=== PATIENT | female | born 1985 | race Caucasian/White ===

== ENCOUNTER 2022-05-10 10:10 | Emergency (ER) | payer MEDICAID, SELFPAY ==
[2022-05-10 10:11] VITALS: BP 131/75; PULSE 90; RESP 18; TEMP 36.7; O2SAT 99; BMI 45.4
[2022-05-10 10:44] LABS: MANUAL DIFF FLAG NO
[2022-05-10 10:48] LABS: Basophils Absolute Auto 0.1 X10*3/uL (0.0-0.2); Basophils Percent Auto 0.8 % (0-2); Eosinophils Absolute Auto 0.3 X10*3/uL (0.0-0.4); Eosinophils Percent Auto 2.8 % (0-4); Hematocrit 39.7 % (37.0-47.0); Hemoglobin 13.4 g/dl (12.0-16.0); Imm Gran Abs Auto 0.07 X10*3/uL (0.00-0.03); Imm Gran Pct Auto 0.7 % (0.0-0.4); Lymphocytes Absolute Auto 3.3 X10*3/uL (1.2-4.9); Lymphocytes Percent Auto 31.7 % (20-40); Mean Corpuscular HGB Conc 33.8 g/dl (31.0-35.0); Mean Corpuscular Hemoglobin 29.9 pg (27.0-33.0); Mean Corpuscular Volume 88.6 fL (80.0-98.0); Mean Platelet Volume 9.1 fL (9.4-12.3); Monocytes Absolute Auto 0.8 X10*3/uL (0.1-1.2); Monocytes Percent Auto 7.3 % (2-11); Neutrophils Percent Auto 56.7 % (45-73); Platelet Count 446 X10*3/uL (160-400); Red Blood Count 4.48 X10*6/uL (4.20-5.50); Red Cell Distribution Width 13.2 % (11.0-16.0); White Blood Count 10.5 X10*3/uL (4.8-10.8)
[2022-05-10 11:04] LABS: Alanine Aminotransferase 27 U/L (0-31); Albumin Level 4.1 g/dL (3.5-5.0); Alkaline Phosphatase 59 U/L (39-117); Anion Gap 11 (12-20); Aspartate Amino Transferase 20 U/L (5-31); Blood Urea Nitrogen 13 mg/dL (9-16); Calcium 9.3 mg/dL (8.4-10.2); Carbon Dioxide 26 mmol/L (22-29); Chloride 103 mmol/L (96-108); Creatinine Clr Calc Pharmacy 114.5; Estimated Glomerular Filt Rate > 60; Glucose Random 97 mg/dL (60-115); Potassium 4.2 mmol/L (3.3-5.1); Sodium 136 mmol/L (135-145); Total Protein 7.1 g/dL (6.5-8.0)
[2022-05-10 11:28] LABS: Bilirubin Total 0.3 mg/dL (0.0-1.0)
--- NOTE | 2022-05-10 16:42 | ED_ITS ---
HPI - GI Bleed General Chief complaint: GI Bleed Stated complaint: Blood in stool Time Seen by Provider: 05/10/22 16:28 Source: patient and old records reviewed History of Present Illness HPI Narrative: Patient states she has had diarrhea for the past week. It has been watery but dark. No nausea vomiting but positive loss of appetite. She has been drinking plenty of liquids however. No abdominal pain or cramping. Over the past 2 days she has developed bright red blood per rectum. It is separate from the stool. She states it has been copious covering bowl. No lightheadedness or shortness of breath or chest pain. She has a history of bleeding hemorrhoids when she was 12 years ago but no issues since. She denies any rectal pain or swelling or masses. Not currently menstruating. No urinary symptoms She does not take NSAIDs. She occasionally takes Tylenol for headaches. She is on a benzodiazepine for anxiety but no other medications. She does not take antacids. 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 Related Data Previous Rx's Medication Instructions Recorded ulipristal 30 mg tablet 30 mg PO ONCE #1 tab 05/02/20 omeprazole magnesium 20 mg 20 mg PO DAILY #30 tabs 05/10/22 tablet,delayed release (Prilosec OTC) ondansetron 4 mg disintegrating 4 mg PO Q8H PRN nausea and 05/10/22 tablet vomiting #14 tabs witch faith 50 % topical pads 1 pad topical BID #48 ea 05/10/22 (Hemorrhoidal (witch faith)) Allergies Allergy/AdvReac Type Severity Reaction Status Date / Time No Known Allergies Allergy Unverified 02/06/20 17:58 Review of Systems Constitutional: Comments: No fevers chills or weakness Cardiovascular: Comments: No chest pain or palpitations Respiratory: Comments: No dyspnea Gastrointestinal: Comments: See HPI. No pain. Positive GI bleeding Musculoskeletal: Comments: No injuries or extremity pain Integumentary/Breasts: Comments: No rashes Neurologic: Comments: No focal weakness Hematologic/Lymphatic: Comments: GI bleeding Physical Exam Vital Signs: Vital Signs: Last Vital Signs Temp 98.1 F 05/10/22 10:11 Pulse 90 05/10/22 10:11 Resp 18 05/10/22 10:11 BP 131/75 05/10/22 10:11 Pulse Ox 99 05/10/22 10:11 O2 Del Method 05/10/22 10:11 BMI result Body Mass Index 45.4 Const: Other: Vital signs stable. Awake alert no acute distress Resp: Other: Clear and equal bilaterally without wheezes rales or rhonchi Cardio: Other: Regular rate rhythm without murmurs rubs or gallops GI: Other: Soft nontender. Normoactive bowel sounds. Rectal exam reveals 2 very small external hemorrhoids, not thrombosed or inflamed or bleeding. Approximately 4 and 06:00 o'clock. 2-3 mm each. Rectal exam shows small amounts of bright red blood. There is an internal hemorrhoids approximately 03:00 o'clock which is slightly over 0.5 cm. It is n ot thrombosed. Unclear if it is bleeding is it is internal. No melena. No stool in vault. Skin: Other: Warm pink and dry without rash Neuro: Other: Ambulatory. Nonfocal neuro exam Medical Decision Making Medical Decision Making MDM Narrative: Patient with 1 week of diarrheal illness. Two days of bright red blood per rectum. Multiple potential etiologies including colitis, infectious diarrhea, bleeding hemorrhoids, polyps, other masses, AVM, etc.. It does not appear consistent with an upper GI bleed even with a history of dark diarrhea. There is no melena the monitor. She is hemodynamically stable. Hemoglobin is normal and unchanged from prior. No evidence of hemodynamically significant hemorrhaging. Will treat for hemorrhoids as well as gastritis and nausea. GI follow-up as she likely needs colonoscopy to look for internal causes of lower GI bleed. Lab Data Result Diagrams: 05/10/22 10:36 05/10/22 10:36 Labs: Lab Results 05/10/22 05/10/22 Range/Units 10:36 10:36 WBC 10.5 (4.8-10.8) X10*3/uL RBC 4.48 (4.20-5.50) X10*6/uL Hgb 13.4 (12.0-16.0) g/dl Hct 39.7 (37.0-47.0) % MCV 88.6 (80.0-98.0) fL MCH 29.9 (27.0-33.0) pg MCHC 33.8 (31.0-35.0) g/dl RDW 13.2 (11.0-16.0) % Plt Count 446 H (160-400) X10*3/uL MPV 9.1 L (9.4-12.3) fL Immature Gran % (Auto) 0.7 H (0.0-0.4) % Neut % (Auto) 56.7 (45-73) % Lymph % (Auto) 31.7 (20-40) % Gray % (Auto) 7.3 (2-11) % Eos % (Auto) 2.8 (0-4) % Baso % (Auto) 0.8 (0-2) % Lymph # (Auto) 3.3 (1.2-4.9) X10*3/uL Gray # (Auto) 0.8 (0.1-1.2) X10*3/uL Eos # (Auto) 0.3 (0.0-0.4) X10*3/uL Baso # (Auto) 0.1 (0.0-0.2) X10*3/uL Abs Immat Gran (auto) 0.07 H (0.00-0.03) X10*3/uL Absolute Neuts (auto) 6.0 (2.0-8.3) x10*3/uL Absolute Nucleated RBC 0.000 (0.0-0.012) X10*3/uL Nucleated RBC % (auto) 0.0 (0.0-0.2) /100WBC Sodium 136 (135-145) mmol/L Potassium 4.2 (3.3-5.1) mmol/L Chloride 103 (96-108) mmol/L Carbon Dioxide 26 (22-29) mmol/L Anion Gap 11 L (12-20) BUN 13 (9-16) mg/dL Creatinine 0.96 (0.5-1.4) mg/dL Estim Creat Clear Calc 114.5 Estimated GFR > 60 Random Glucose 97 (60-115) mg/dL Calcium 9.3 (8.4-10.2) mg/dL Total Bilirubin 0.3 (0.0-1.0) mg/dL AST 20 (5-31) U/L ALT 27 (0-31) U/L Alkaline Phosphatase 59 (39-117) U/L Total Protein 7.1 (6.5-8.0) g/dL Albumin 4.1 (3.5-5.0) g/dL Discharge Plan Discharge Clinical Impression: Hemorrhoids, Lower gastrointestinal hemorrhage Patient Disposition: Home, Self-Care Instructions: Hemorrhoids (ED), Rectal Bleeding (ED) Additional Instructions: New of internal hemorrhoids on exam, but it is unclear if this is the source of your bleeding. We will treat the hemorrhoids but you also need to follow-up wit h gastroenterology for definitive diagnosis of the cause of the bleeding. Be sure to return immediately if worse in any way, especially if bleeding is uncontrolled or you are feeling lightheaded or shortness breath. In the meantime will also treat for nausea with Zofran and stomach acid with Prilosec. See the referral for Dr. Bone to arrange gastrointestinal follow-up Prescriptions: New Hemorrhoidal (witch faith) 50 % pads, medicated 1 pad topical BID Qty: 48 0RF ondansetron 4 mg tablet,disintegrating 4 mg PO Q8H PRN (Reason: nausea and vomiting) Qty: 14 0RF omeprazole magnesium [Prilosec OTC] 20 mg tablet,delayed release (DR/EC) 20 mg PO DAILY Qty: 30 0RF No Action ulipristal 30 mg tablet 30 mg PO ONCE Qty: 1 3RF Referrals: Diony Bone [Physician] -
[2022-05-10] MEDS: Omeprazole 20 MG CAPSULE.DR PO (17:04)
[2022-05-10] MEDS: Ondansetron ODT 4 MG TAB.RAPDIS TRANSLINGU (17:04)
== END 2022-05-10 17:06 | disposition home or self-care (01) ==
PROVIDERS: Emergency Provider Emergency Medicine; PCP Family Medicine
DX: K64.8 Other hemorrhoids (principal); K64.4 Residual hemorrhoidal skin tags; K92.2 Gastrointestinal hemorrhage, unspecified
CPT/HCPCS: 36415; 80053; 85025; 99282; 99283

== ENCOUNTER 2024-04-10 12:32 | Outpatient (REF) | payer MEDICAID, SELFPAY ==
[2024-04-10 13:26] LABS: MANUAL DIFF FLAG NO
[2024-04-10 13:34] LABS: Basophils Absolute Auto 0.1 X10*3/uL (0.0-0.2); Basophils Percent Auto 0.9 % (0-2); Eosinophils Absolute Auto 0.3 X10*3/uL (0.0-0.4); Hematocrit 39.7 % (37.0-47.0); Hemoglobin 13.7 g/dl (12.0-16.0); Imm Gran Abs Auto 0.05 X10*3/uL (0.00-0.03); Imm Gran Pct Auto 0.5 % (0.0-0.4); Lymphocytes Absolute Auto 2.8 X10*3/uL (1.2-4.9); Lymphocytes Percent Auto 28.6 % (20-40); Mean Corpuscular HGB Conc 34.5 g/dl (31.0-35.0); Mean Corpuscular Hemoglobin 30.9 pg (27.0-33.0); Mean Corpuscular Volume 89.4 fL (80.0-98.0); Mean Platelet Volume 10.1 fL (9.4-12.3); Monocytes Absolute Auto 0.7 X10*3/uL (0.1-1.2); Monocytes Percent Auto 7.3 % (2-11); Neutrophils Absolute Auto 5.9 x10*3/uL (2.0-8.3); Neutrophils Percent Auto 59.7 % (45-73); Platelet Count 370 X10*3/uL (160-400); Red Blood Count 4.44 X10*6/uL (4.20-5.50); Red Cell Distribution Width 13.2 % (11.0-16.0); White Blood Count 9.9 X10*3/uL (4.8-10.8)
[2024-04-10 13:41] LABS: Estimated Average Glucose 117 mg/dL; Hemoglobin A1C 137.9418 umol/L; Hemoglobin A1c % 5.7 % (<6.0); Total Hemoglobin (HGBA1C) 3579.8959 umol/L
[2024-04-10 14:15] LABS: Anion Gap 11 (12-20); Blood Urea Nitrogen 17 mg/dL (9-16); Calcium 9.1 mg/dL (8.4-10.2); Carbon Dioxide 29 mmol/L (22-29); Chloride 102 mmol/L (96-108); Estimated Glomerular Filt Rate > 60; Glucose Random 113 mg/dL (60-115); Potassium 3.8 mmol/L (3.3-5.1); Sodium 138 mmol/L (135-145)
[2024-04-10 14:18] LABS: HBS Num1 9.55 mIU/mL (0-7.99); HBc Num1 0.11 S/CO (0.00-0.79); HBsAGNum1 0.35 S/CO (0.00-0.99); HIV AB/AG Nonreactive (Nonreactive); HIV Num 1 0.06 S/CO (0.00-0.99); Hepatitis B Core Antibody Nonreactive (Nonreactive); Hepatitis B Surface Antigen Negative (Negative); ~Hepatitis C Antibody Nonreactive (Nonreactive)
[2024-04-10 14:20] LABS: Hepatitis A Antibody IgG REACTIVE (Nonreactive); ~Hepatitis A Antibody IgG 1.42 S/CO (0.00-0.99)
[2024-04-10 14:24] LABS: Alanine Aminotransferase 26 U/L (0-31); Albumin Level 4.2 g/dL (3.5-5.0); Alkaline Phosphatase 64 U/L (39-117); Anion Gap 11 (12-20); Aspartate Amino Transferase 18 U/L (5-31); Bilirubin Direct < 0.2 mg/dL (0.0-0.5); Bilirubin Total 0.2 mg/dL (0.0-1.0); Blood Urea Nitrogen 17 mg/dL (9-16); Calcium 9.4 mg/dL (8.4-10.2); Carbon Dioxide 28 mmol/L (22-29); Chloride 103 mmol/L (96-108); Cholesterol 128 mg/dL (<200); Estimated Glomerular Filt Rate > 60; Glucose Random 113 mg/dL (60-115); HDL Cholesterol 49 mg/dL (>40); Iron 55 mcg/dL (30-160); LDL Cholesterol Calculated 47 mg/dL (<100); Percent Iron Saturation 19 % (15-50); Potassium 3.8 mmol/L (3.3-5.1); Sodium 138 mmol/L (135-145); TSH reflex Free T4 2.48 uIU/mL (0.32-4.0); Thyroid Stimulating Hormone 2.48 uIU/mL (0.32-4.0); Total Iron Binding Capacity 285 mcg/dL (228-428); Total Protein 7.4 g/dL (6.5-8.0); Triglycerides 161 mg/dL (<150); Unsaturated Iron Binding 230 ug/dL
[2024-04-10 14:26] LABS: Ferritin 97 ng/mL (10-122); Free T4 (Free Thyroxine) 0.98 ng/dL (0.71-1.85); Vitamin D 25-OH Total 21.9 ng/mL (>30)
[2024-04-10 15:09] LABS: HBS Num2 9.91 mIU/mL (0-7.99); HBS Num3 10.11 mIU/mL (0-7.99); ~Hepatitis B Surface Antibody GRAYZONE (Nonreactive)
[2024-04-10 19:27] LABS: Folate 4.6 ng/mL (> or = 4.0); Vitamin B12 461 pg/mL (200-900)
[2024-04-12 08:48] LABS: RPR Rapid Plasma Reagin NON-REACTIVE (NON-REACTIVE)
== END 2024-04-10 12:33 | disposition home or self-care (01) ==
LOC: HO.HHCL 12:32
PROVIDERS: Family Medicine; Visit Provider Family Medicine
DX: R51.9 Headache, unspecified (principal); I10 Essential (primary) hypertension
CPT/HCPCS: 36415; 80048; 80061; 80076; 82306; 82607; 82728; 82746; 83036; 83540; 84439; 84443; 85025; 86592; 86704; 86706; 86708; 86803; 87340; 87389

== ENCOUNTER 2024-04-30 05:59 | Outpatient (REF) | payer MEDICAID, SELFPAY ==
--- NOTE | 2024-04-30 | EMG_ITS ---
FINDINGS: Bilateral median and ulnar motor and sensory studies were performed. Bilateral radial sensory studies were performed and paraspinal muscles were tested with a needle. IMPRESSION: Moderate left and mild right median neuropathy across carpal tunnel. MD TREASURE Mijares/RONI / [id number]
== END 2024-04-30 06:00 | disposition home or self-care (01) ==
LOC: HO.NEURO 05:59
PROVIDERS: PCP Family Medicine; Visit Provider Family Medicine
DX: G56.03 Carpal tunnel syndrome, bilateral upper limbs (principal)
CPT/HCPCS: 95886; 95911

== ENCOUNTER 2024-05-01 18:20 | Outpatient (REF) | payer MEDICAID, SELFPAY ==
[2024-05-02 02:53] LABS: CT PCR NOT DETECTED (Not Detect.); NG PCR NOT DETECTED (Not Detect.)
[2024-05-02 10:33] LABS: HPV 16,18/45 See PAP report
== END 2024-05-01 18:21 | disposition home or self-care (01) ==
LOC: HO.HHCLNP 18:20
PROVIDERS: Visit Provider Family Medicine
DX: Z01.419 Encounter for gynecological examination (general) (routine) without abnormal findings (principal); Z11.51 Encounter for screening for human papillomavirus (HPV)
CPT/HCPCS: 87491; 87591; 87624; 88175

== ENCOUNTER 2024-06-12 10:22 | Emergency (ER) | payer MEDICAID, SELFPAY ==
--- NOTE | ~2024-06-12 | CT_ITS ---
CLINICAL HISTORY: head pressure CT angiography head and neck with contrast and CT venogram. 3D Postprocessing. Comparison: CT/SR - CT HEAD/BRAIN WO IV CON - 06/12/24 12:09 EST MR - MRA HEAD WO CONTRAST [id number] - 07/06/18 17:29 EST Findings: Limited evaluation due to the delayed phase of contrast and venous contamination. Aortic arch and cervical great vessels are patent. No significant calcification of the carotid arteries. Left dominant vertebral artery. Small caliber right vertebral artery with limited evaluation. Intracranial arteries are patent. No aneurysm, dissection, or occlusion. No abnormal intracranial enhancement. The visualized thyroid gland is unremarkable. No cervical mass or fluid collection. Lung apices clear. No acute fracture. CT venogram: No contrast filling defects of the dural venous sinuses. IMPRESSION: Patent head and neck CTA. Limited evaluation due to the delayed phase of contrast. No evidence of dural venous sinus thrombosis. This document has been electronically signed by: Silas Baca MD on 06/12/2024 18:32:20
--- NOTE | ~2024-06-12 | CT_ITS ---
EXAMINATION: CT HEAD WITHOUT CONTRAST CLINICAL INFORMATION: Left-sided headache COMPARISON: None available. TECHNIQUE: Contiguous axial imaging was performed from the skull base to vertex without intravenous administration of contrast. This CT examination was performed using dose optimization techniques as appropriate, variously including the following: *Automated exposure control *Adjustment of mA and/or kV according to patient size (this includes techniques or standardized protocols for targeted exams where dose is matched to indication/reason for exam; i.e. extremities or head) *Use of iterative reconstruction technique DLP: 775 mGy/cm. FINDINGS: There is no acute intra-axial, extra-axial bleed, masses or midline shift. There is no acute infarction evolution. The mcfarland to white matter differentiation is maintained. The lateral ventricles are symmetrical in size and configuration without enlargement. No abnormality seen in the posterior fossa. Bone windows reveal no calvarial abnormality. No scalp soft tissue body. There is mild mucoperiosteal thickening bilateral sphenoid sinuses. Rest of paranasal sinuses and mastoid air cells are well-aerated. CT/CT head/brain wo IV con IMPRESSION: No acute intracranial process seen. Electronically signed by: Mj Holliday MD 06/12/2024 12:36 PM EST
[2024-06-12 10:32] VITALS: BP 173/83; PULSE 85; RESP 20; TEMP 36.8; O2SAT 99; BMI 45.6
--- NOTE | 2024-06-12 10:33 | ED.HA ---
HPI - Headache General Chief Complaint: Headache Stated Complaint: Ear Neck Pain Time Seen by Provider: 06/12/24 13:03 Source: patient Mode of arrival: ambulatory Limitations: no limitations History of Present Illness ED Provider: DANTE PRINCE PA-C HPI Narrative: 38 year old female with phx significant for GERD presents to the ED today for evaluation of left sided neck pain/ headache which began yesterday. She reports pain came on gradually yesterday. She does not recall what she was doing when the pain started. Pain is localized to the left side of her neck and radiates up into her head. She reports difficulty moving her neck side to side. She states her neck feels stiff. She is unsure if she slept in an odd position. She trialed motrin at home without relief. Denies fever/ chills, vision changes, N/V, confusion, difficulty ambulating. Denies trauma/injury/falls. No hx of migraines. Related Data Previous Rx's ?Medication ?Instructions ?Recorded ulipristal 30 mg tablet 30 mg PO ONCE #1 tab 05/02/20 omeprazole magnesium 20 mg 20 mg PO DAILY #30 tabs 05/10/22 tablet,delayed release (Prilosec OTC) ondansetron 4 mg disintegrating 4 mg PO Q8H PRN nausea and 05/10/22 tablet vomiting #14 tabs witch faith 50 % topical pads 1 pad topical BID #48 ea 05/10/22 (Hemorrhoidal (witch faith)) cyclobenzaprine 10 mg tablet 10 mg PO TID PRN muscle spasm #15 06/12/24 tabs naproxen 500 mg tablet 500 mg PO BID PRN pain 7 days #14 06/12/24 tabs Allergies Allergy/AdvReac Type Severity Reaction Status Date / Time No Known Allergies Allergy Verified 06/12/24 10:35 Review of Systems Review of Systems: Constitutional: No fever, chills, fatigue, night sweats, weight changes ENT/Mouth: No ear pain, hearing loss, nasal congestion, sinus pain, rhinorrhea, sore throat Eyes: No eye pain, swelling, redness, vision changes, discharge Cardio: No chest pain, palpitations, ELLER, orthopnea, peripheral edema Pulm: No SOB, cough, sputum, wheezing, dyspnea, hemoptysis GI: No nausea, vomiting, hematemesis, abdominal pain, diarrhea, constipation, hematochezia, melena : No irregular bleeding, dysuria, frequency, urgency, hesitancy, hematuria, flank pain, urinary flow changes, urinary incontinence or retention MSK: No back pain, neck pain, joint pain, myalgias Skin: No lesions, rashes Neuro: No weakness, numbness, paresthesias, LOC, dizziness, +headache Psych: No anxiety/panic, depression, SI/HI, AH/VH All other systems reviewed and are negative. [facility] Past Medical History Attestation statement: The following information was validated with the patient. Source: old records reviewed and nursing notes reviewed Social History Social History Smoked in Last 30 Days: No Use of substances other than those prescribed or required for medical reasons: No Advance Directives: No Advance Directives Information Provided: Yes Do you have a plan to hurt others: No Plan Physical Exam Vital Signs: Vital Signs: Last Vital Signs Temp 0 F L 06/12/24 21:10 Pulse 0 L 06/12/24 21:10 Resp 20 06/12/24 21:10 BP 00/00 L 06/12/24 21:10 Pulse Ox 99 06/12/24 18:52 O2 Del Method Room Air 06/12/24 18:52 BMI result Body Mass Index 45.6 hypertensvive, vitals otherwise wnl General: Well appearing, in no acute distress. Skin: Warm, dry, intact. No rashes or lesions. Head: Normocephalic, atraumatic. EENT: Hearing is intact b/l. Conjunctiva clear. Sclera is anicteric. PERRLA. EOM intact. Moist mucous membranes.? Neck: ttp along left cervical paraspinal mm with palpable spasm. no midline tenderness/step off. no meningeal signs/ nunchal rigidity. Cardiac: Chest wall symmetric. RRR Lungs: Normal respiratory effort without accessory muscle use. CTA bilaterally. Back: No midline spinous or paraspinal tenderness. No step off deformity. Ext: Upper and lower extremities atraumatic, without tenderness, deformity, swelling or erythema Neuro: AOx3. Normal speech. Strength 5/5 intact throughout. Sensation intact to light touch. NV intact distally. normal finger to nose, heel to mccloud. Ambulating with steady gait. Psych: Appropriate mood and affect. Responds appropriately to questions. Course Course Course Narrative: 38 yo female with PMH of GERD not on blood thinners here with c/o L sided headache felt like it was going to explode. She notes her brother had some sort of stroke. Denies URI symptoms, fevers. She has headaches but this is different for her. Headache started morning. She has not taken anything for it. At this time basic labs, CT head ordered. She is not toxic and neuro exam is intact this is a RAPID medical screening exam the rest of the history and physical exam is to be done by the main provider. Reevaluation(s) Reevaluation #1: Patient feels better. Head CTA negative. Patient requests to be discharged with muscle relaxant will follow-up with primary care provider. Not suspecting any meningitis, SD, carotid dissection or encephalitis. Patient explained worrisome signs and informed to return to the ED immediately. Time: 20:29 Reevaluation #2: 1630 -- cbc without leukocytosis or left shift. no anemia. h&h stable. chemistry without acute electrolyte abnormality requiring intervention. no tressa. random glucose 116. liver function around baseline. hcg negative. Negative covid/flu/rsv. ct head without bleed or mass. > trialed valium for neck pain. patient reports slight improvement in pain from 7/10 to 6/10. will trial migraine coctail. cta pending. stable at the end of my shift. sign out given to asha MOSS pending imaging, re-eval and disposition. Medications Administered Discontinued Medications Generic Name Dose Route Start Last Admin Trade Name Eriberto PRN Reason Stop Dose Admin Acetaminophen 975 mg 06/12/24 12:35 06/12/24 13:35 Acetaminophen 325 Mg Tablet PO 06/12/24 12:36 975 mg ONCE ONE Administration Diazepam 5 mg 06/12/24 14:01 06/12/24 15:01 Diazepam 5 Mg Tablet PO 06/12/24 14:02 5 mg ONCE ONE Administration Diphenhydramine HCl 25 mg 06/12/24 15:57 06/12/24 16:13 Diphenhydramine Hcl 50 Mg/Ml Vial IVPUSH 06/12/24 15:58 25 mg ONCE ONE Administration Sodium Chloride 1,000 mls @ 999 mls/hr 06/12/24 16:00 06/12/24 20:17 Ns IV 06/12/24 17:00 Infused .Q1H1M MARINA Infusion Iohexol 100 ml 06/12/24 17:16 06/12/24 17:16 Iohexol 350 Mg/Ml 100 Ml Infus..Btl IV 06/12/24 17:17 70 ml ONCE ONE Administration Ketorolac Tromethamine 15 mg 06/12/24 15:57 06/12/24 16:14 Ketorolac Tromethamine 15 Mg/Ml Vial IVPUSH 06/12/24 15:58 15 mg ONCE ONE Administration Metoclopramide HCl 10 mg 06/12/24 15:57 06/12/24 16:13 Metoclopramide Hcl 10 Mg/2 Ml Vial IVPUSH 06/12/24 15:58 10 mg ONCE ONE Administration Medical Decision Making Medical Decision Making [facility] Narrative: 38 year old female with phx significant for GERD presents to the ED today for evaluation of left sided neck pain/ headache which began yesterday. Hypertensive to 149/93. Vitals otherwise WNL. She is nontoxic appearing in no acute distress. NIH 0. Exam nonfocal. Cerebellum intact. No palpable temporal artery. No scalp tenderness. PERRLA. Ambulating w/ steady gait. Differential diagnosis includes anemia, electrolyte abnormality, dehydration, cervical muscle spasm vs strain, migraine vs tension type headache. No headache red flags. Neurologic exam without evidence of meningismus. No focal neurologic findings. Presentation not consistent with acute intracranial bleed including SAH (lack of risk factors, headache history). 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 Temporal arteritis unlikely, as is acute angle closure glaucoma given history and physical findings. Presentation not consistent with other acute, emergent causes of headache at this time. Plan: Labs, viral serology, CT head, migraine cocktail, re-evaluation. Differential Diagnosis Differential Diagnoses: The differential diagnosis associated with the presentation includes as above. Admission/Observation not indicated. Lab Data [facility] Lab Attestation statement: I reviewed the patient's lab results. As above 06/12/24 11:23 06/12/24 11:23 Labs: Lab Results 06/12/24 Range/Units 11:23 WBC 10.8 (4.8-10.8) X10*3/uL RBC 4.21 (4.20-5.50) X10*6/uL Hgb 12.7 (12.0-16.0) g/dl Hct 37.4 (37.0-47.0) % MCV 88.8 (80.0-98.0) fL MCH 30.2 (27.0-33.0) pg MCHC 34.0 (31.0-35.0) g/dl RDW 13.4 (11.0-16.0) % Plt Count 333 (160-400) X10*3/uL MPV 9.8 (9.4-12.3) fL Immature Gran % (Auto) 0.5 H (0.0-0.4) % Neut % (Auto) 64.9 (45-73) % Lymph % (Auto) 26.4 (20-40) % [place] % (Auto) 6.3 (2-11) % Eos % (Auto) 1.3 (0-4) % Baso % (Auto) 0.6 (0-2) % Lymph # (Auto) 2.9 (1.2-4.9) X10*3/uL [place] # (Auto) 0.7 (0.1-1.2) X10*3/uL Eos # (Auto) 0.1 (0.0-0.4) X10*3/uL Baso # (Auto) 0.1 (0.0-0.2) X10*3/uL Abs Immat Gran (auto) 0.05 H (0.00-0.03) X10*3/uL Absolute Neuts (auto) 7.0 (2.0-8.3) x10*3/uL Absolute Nucleated RBC 0.000 (0.0-0.012) X10*3/uL Nucleated RBC % (auto) 0.0 (0.0-0.2) /100WBC Sodium 139 (135-145) mmol/L Potassium 4.0 (3.3-5.1) mmol/L Chloride 110 H (96-108) mmol/L Carbon Dioxide 24 (22-29) mmol/L Anion Gap 9 L (12-20) BUN 13 (9-16) mg/dL Creatinine 0.73 (0.5-1.4) mg/dL Estim Creat Clear Calc 148.2 Estimated GFR > 60 Random Glucose 116 H (60-115) mg/dL Calcium 9.2 (8.4-10.2) mg/dL Magnesium 2.2 (1.6-2.6) mg/dL Total Bilirubin 0.2 (0.0-1.0) mg/dL Direct Bilirubin < 0.2 (0.0-0.5) mg/dL AST 21 (5-31) U/L ALT 37 H (0-31) U/L Alkaline Phosphatase 62 (39-117) U/L Total Protein 7.4 (6.5-8.0) g/dL Albumin 4.1 (3.5-5.0) g/dL Beta HCG, Quant < 2 mIU/mL Influenza Type A (PCR) NEGATIVE (Negative) Influenza Type B (PCR) NEGATIVE (Negative) RSV RNA Qual (PCR) NEGATIVE (Negative) SARS-CoV-2 RNA (RT-PCR) NEGATIVE (Negative) Independent Interpretation I performed an independent interpretation of an: CT Scan Interpretation: CT head/brain without bleed CTA without bleed/ ischemia Radiology Impression Discussion of test interpretation with radiology: I have reviewed the radiologist's reading. Radiologist Impression: EXAMINATION: CT HEAD WITHOUT CONTRAST CLINICAL INFORMATION: Left-sided headache COMPARISON: None available. TECHNIQUE: Contiguous axial imaging was performed from the skull base to vertex without intravenous administration of contrast. This CT examination was performed using dose optimization techniques as appropriate, variously including the following: *Automated exposure control *Adjustment of mA and/or kV according to patient size (this includes techniques or standardized protocols for targeted exams where dose is matched to indication/reason for exam; i.e. extremities or head) *Use of iterative reconstruction technique DLP: 775 mGy/cm. FINDINGS: There is no acute intra-axial, extra-axial bleed, masses or midline shift. There is no acute infarction evolution. The mcfarland to white matter differentiation is maintained. The lateral ventricles are symmetrical in size and configuration without enlargement. No abnormality seen in the posterior fossa. Bone windows reveal no calvarial abnormality. No scalp soft tissue body. There is mild mucoperiosteal thickening bilateral sphenoid sinuses. Rest of paranasal sinuses and mastoid air cells are well-aerated. CT/CT head/brain wo IV con IMPRESSION: No acute intracranial process seen. Electronically signed by: Mj Holliday MD 06/12/2024 12:36 PM EST RP CLINICAL HISTORY: head pressure CT angiography head and neck with contrast and CT venogram. 3D Postprocessing. Comparison: CT/SR - CT HEAD/BRAIN WO IV CON - 06/12/24 12:09 EST MR - MRA HEAD WO CONTRAST [id number] - 07/06/18 17:29 EST Findings: Limited evaluation due to the delayed phase of contrast and venous contamination. Aortic arch and cervical great vessels are patent. No significant calcification of the carotid arteries. Left dominant vertebral artery. Small caliber right vertebral artery with limited evaluation. Intracranial arteries are patent. No aneurysm, dissection, or occlusion. No abnormal intracranial enhancement. The visualized thyroid gland is unremarkable. No cervical mass or fluid collection. Lung apices clear. No acute fracture. CT venogram: No contrast filling defects of the dural venous sinuses. IMPRESSION: Patent head and neck CTA. Limited evaluation due to the delayed phase of contrast. No evidence of dural venous sinus thrombosis. This document has been electronically signed by: iSlas Baca MD on 06/12/2024 18:32:20 External Record Review External record reviewed: Inpatient record, Office record, Outpatient record, Prior outpatient labs, Prior outpatient radiology, Primary care record and Outside ED record Prescription Management I considered prescription management with: Pain Medication Social Determinants Patient?s care significantly limited by Social Determinants of Health including: Other Social Determinant of Health Critical Care Time Critical Care Time Critical Care Time: No Discharge Plan Discharge Clinical Impression: Headache, Neck muscle spasm Patient Disposition: Home, Self-Care Instructions: Acute Headache (ED), Muscle Spasm (ED) Additional Instructions: Your labs and CT scans came back normal and reassuring. Recommend follow-up with your primary care provider. Return to the ED immediately for any headache, blurry vision, loss of vision, slurred speech, facial droop, paralysis of extremities, chest pain, shortness of breath, dizziness, or any other concerning symptoms. Findings: Limited evaluation due to the delayed phase of contrast and venous contamination. Aortic arch and cervical great vessels are patent. No significant calcification of the carotid arteries. Left dominant vertebral artery. Small caliber right vertebral artery with limited evaluation. Intracranial arteries are patent. No aneurysm, dissection, or occlusion. No abnormal intracranial enhancement. The visualized thyroid gland is unremarkable. No cervical mass or fluid collection. Lung apices clear. No acute fracture. CT venogram: No contrast filling defects of the dural venous sinuses. IMPRESSION: Patent head and neck CTA. Limited evaluation due to the delayed phase of contrast. No evidence of dural venous sinus thrombosis. This document has been electronically signed by: Silas Baca MD on 06/12/2024 18:32:20 Prescriptions: New cyclobenzaprine 10 mg tablet 10 mg PO TID PRN (Reason: muscle spasm) Qty: 15 0RF Rx Instructions: Do not take at work or while driving. Side effects is drowsiness. naproxen 500 mg tablet 500 mg PO BID PRN (Reason: pain) 7 Days Qty: 14 0RF No Action ulipristal 30 mg tablet 30 mg PO ONCE Qty: 1 3RF Hemorrhoidal (witch faith) 50 % pads, medicated 1 pad topical BID Qty: 48 0RF ondansetron 4 mg tablet,disintegrating 4 mg PO Q8H PRN (Reason: nausea and vomiting) Qty: 14 0RF omeprazole magnesium [Prilosec OTC] 20 mg tablet,delayed release (DR/EC) 20 mg PO DAILY Qty: 30 0RF Referrals: Aditi Carl DO [Primary Care Provider] - (Headache/neck spasm/torcillosis) Stand Alone Forms: Work/School Release Interventions: ED Discharge Assessment Last Done: 06/12/24 21:10 Discharge Date/Time: 06/12/24 21:11 Print Language: [place]
[2024-06-12 11:27] LABS: MANUAL DIFF FLAG NO
[2024-06-12 11:30] LABS: Basophils Absolute Auto 0.1 X10*3/uL (0.0-0.2); Basophils Percent Auto 0.6 % (0-2); Eosinophils Absolute Auto 0.1 X10*3/uL (0.0-0.4); Eosinophils Percent Auto 1.3 % (0-4); Hematocrit 37.4 % (37.0-47.0); Hemoglobin 12.7 g/dl (12.0-16.0); Imm Gran Abs Auto 0.05 X10*3/uL (0.00-0.03); Imm Gran Pct Auto 0.5 % (0.0-0.4); Lymphocytes Absolute Auto 2.9 X10*3/uL (1.2-4.9); Lymphocytes Percent Auto 26.4 % (20-40); Mean Corpuscular Hemoglobin 30.2 pg (27.0-33.0); Mean Corpuscular Volume 88.8 fL (80.0-98.0); Mean Platelet Volume 9.8 fL (9.4-12.3); Monocytes Absolute Auto 0.7 X10*3/uL (0.1-1.2); Monocytes Percent Auto 6.3 % (2-11); Neutrophils Percent Auto 64.9 % (45-73); Platelet Count 333 X10*3/uL (160-400); Red Blood Count 4.21 X10*6/uL (4.20-5.50); Red Cell Distribution Width 13.4 % (11.0-16.0); White Blood Count 10.8 X10*3/uL (4.8-10.8)
[2024-06-12 11:49] LABS: Alanine Aminotransferase 37 U/L (0-31); Albumin Level 4.1 g/dL (3.5-5.0); Alkaline Phosphatase 62 U/L (39-117); Anion Gap 9 (12-20); Aspartate Amino Transferase 21 U/L (5-31); Bilirubin Direct < 0.2 mg/dL (0.0-0.5); Bilirubin Total 0.2 mg/dL (0.0-1.0); Blood Urea Nitrogen 13 mg/dL (9-16); Calcium 9.2 mg/dL (8.4-10.2); Carbon Dioxide 24 mmol/L (22-29); Chloride 110 mmol/L (96-108); Creatinine Clr Calc Pharmacy 148.2; Estimated Glomerular Filt Rate > 60; Glucose Random 116 mg/dL (60-115); HCG Quantitative < 2 mIU/mL; Magnesium 2.2 mg/dL (1.6-2.6); Sodium 139 mmol/L (135-145); Total Protein 7.4 g/dL (6.5-8.0)
[2024-06-12 12:30] LABS: Influenza A PCR NEGATIVE (Negative); Influenza B PCR NEGATIVE (Negative); Resp Syncy Virus RNA Qual PCR NEGATIVE (Negative); SARS COV2 PCR INHOUSE NEGATIVE (Negative)
[2024-06-12 13:32] VITALS: BP 149/93; PULSE 63; RESP 17; TEMP 37; O2SAT 97
[2024-06-12] MEDS: Acetaminophen 325 MG TABLET 975 MG PO (13:35)
[2024-06-12] MEDS: diazePAM 5 MG TABLET PO (15:01)
--- OUTSIDE RECORDS SUMMARY | 2024-06-12 15:24 | XMS_ITS | Encounter Summary ---
Author Organization [employer] Address [address] [facility] 7t [place] [address] Care Team Providers Care Grey Tender Name Role Phone Aditi Carl DO Primary Care Provider [phone] Encounter Details Date Type Department Care Team (Late st Contact Info) Description 06/05/2024 Telephone [facility] [address] [place] [address] Aditi Carl DO [address] [place], [place] [phone] Social History Tobacco Use Types Packs/Day Years Used Date Smoking Tobacco: Former Cigarettes Passive Smoke Exposure: Past Smokeless Tobacco: Never Alcohol Use Standard Drinks/Week Comments Not Currently 0 (1 standard drink = 0.6 oz pur e alcohol) Housing Stability Answer Date Recorded What is your housing situation today? I have jeannine arriaza 03/29/[address] you li ve. Do you have problems with any of the following? None of the above 03/29/2024 Food Insecurity Answer Date Recorded Within the past 12 months, y ou worried that your food would run out before you got money to buy more: Often true 03/29/2024 Within the past 12 months,th e food you bought just didn't last and you didn't have enough money to get more: Often true 12/2023 Transportation Answer Date Recorded In the past 12 months, has l ack of transportation kept you from medical appts, meetings, work or from getting things needed for daily living? No 03/29/2024 Utilities Answer Date Recorded In the past 12 months, has t he electric, gas, oil or water company threatened to shut off services in your home? No 03/29/2024 Internet Access Answer Date Recorded Internet Access Q1 Yes 03/29/2024 Internet Access Q2 Not on file 03/29/2024 Comments No Sex and Gender Information Value Date Recorded Sex Assigned at Female 03/21/2022 10:21 AM EDT Legal Sex Female 10:21 AM EDT Gender Identity Female 03/21/2022 10:21 AM EDT Sexual Orientation Straight 03/21/2022 10 :21 AM EDT documented as of this encounter Miscellaneous Notes * Telephone Encounter - Mary Anne Arreola - 06/05/2024 9:59 AM EST [place] [facility] Head/Brain order to be update to MRA Brain/Head wo contrast . Please review and advise . documented in this encounter Plan of Treatment Not on file documented as of this encounter Visit Diagnoses Not on filedocumented in this encounter Care Teams Grey Tender Relationship Specialty Start Date End Date Aditi Carl DO [address] [place] [phone] PCP - General Family Medicine 04/08/24 documented as of this encounter
--- OUTSIDE RECORDS SUMMARY | 2024-06-12 15:24 | XMS_ITS | Encounter Summary ---
Author Organization [employer] Address [address] [facility] 7t [place] [address] Care Team Providers Care Business Sales Consultant Name Role Phone BeatrizAditi hernandez Primary Care Provider [phone] Encounter Details Date Type Department Care Team (Late st Contact Info) Description 06/12/2024 Orders Only GENERIC EXTERNAL DATA DEPARTMENT Provider, Generic External Data Social History Tobacco Use Types Packs/Day Years [...] AM EDT documented as of this encounter Plan of Treatment Not on file documented as of this encounter Procedures Procedure Name Priority Date/Time Associated Diagnosis Comments SARS COV2/INFLUENZA A/B AND RSV RNA QL NAAT Routine 06/12/2024 11:23 AM EST CBC WITH AUTO DIFFERENTIAL Routine 06/12/2024 11:23 AM EST HCG, TOTAL, QN Routine 06/12/2024 11:23 AM EST MAGNESIUM Routine 06/12/2024 11:23 AM EST HEPATIC FUNCTION PANEL Routine 06/12/2024 11:23 AM EST BASIC METABOLIC PANEL Routine 06/12/2024 11:[address] HEAD WO CONTRAST Routine 06/12/2024 1 0:36 AM EST documented in this encounter Results * SARS-CoV-2 RNA, Influenza A/B, and RSV RNA, Ql NAAT (06/12/2024 11:23 AM EST) Influenza A PCR NEGATIVE Negative [facility] Influenza B PCR NEGATIVE Negative [facility] Resp Syncy Virus RNA Qual PCR NEGATIVE Negative [facility] SARS COV2 PCR NEGATIVE Negative [facility] Comment:All test results mus t be correlated with clinical findings.Negative results do not preclude SARS-CoV2, influenza Avirus, influenza B virus and/or RSV infectionand should not be used as the sole basis for treatment orother patient management decisions. Negative results must becombined with clinical observations, patient history, andepidemiological information.This test has not been evaluated for monitoring treatment ofinfection.This test has been authorized by the FDA under an EmergencyUse Authorization (EUA) for use by authorized laboratories.Testing performed on the [employer]pert utilizingreal-time RT-PCR.All SARS CoV2 and positive influenza A/B results arereported to [facility]. 06/12/2024 11:2 3 AM EST 06/12/2024 11:25 AM EST Generic External Data Provider LAB MICROBIOLOGY - GENERAL ORDERABLES Final Result Performing Organization Address City/[facility]/ZIP Co de Phone Number [facility] [address] [place] [phone] [phone] * hCG, Total, Quantitative (06/12/2024 11:23 AM EST) HCG Quantitative <2 mIU/mL [facility] Comment:Weeks post LMP Appro ximate hCG(Last Menstrual Period) Range (mIU/ml)3 - 4 weeks 9 - 1304 - 5 weeks 75 - 2,6005 - 6 weeks 850 - 20,8006 - 7 weeks 4000 - 100,2007 - 12 weeks 11,500 - 289,05116 - 16 weeks 18,300 - 137,95414 - 29 weeks (2nd trimester) 1,400 - 53,53805 - 41 weeks (3rd trimester) 940 - 60,000The Siddiqui B- hCG assay is used for the early detection ofpregnancy; it cannot be used to diagnose any conditionunrelated to . If a B-hCG level is not supportedby the clinical evidence, results should be confirmed by analternative method (qualitative urine hCG, for example). 06/12/2024 11:2 3 AM EST 06/12/2024 11:25 AM EST Generic External Data Provider LAB BLOOD ORDERAB LES Final Result Performing Organization Address City/[facility]/ZIP Co de Phone Number [facility] [address] [place] [address] [phone] * Magnesium (06/12/2024 11:23 AM EST) Magnesium 2.2 1.6 - 2.6 mg/dL [facility] 06/12/2024 11:2 3 AM EST 06/12/2024 11:25 AM EST us Generic External Data Provider LAB BLOOD ORDERAB LES Final Result Performing Organization Address City/[facility]/ZIP Co de Phone Number [facility] [address] [place] [phone] * (ABNORMAL) Basic Metabolic Panel (06/12/2024 11:23 AM EST) Sodium 139 135 - 145 mmol/L [facility] Potassium 4.0 3.3 - 5.1 mmol/L [facility] Chloride 110(H) 96 - 108 mmol/L [facility] Carbon Dioxide 24 22 - 29 mmol/L [facility] Anion Gap 9(L) 12 - 20 [facility] Urea Nitrogen (BUN) 13 9 - 16 mg/dL [facility] Creatinine, Serum 0.73 0.5 - 1.4 mg/dL [facility] Creatinine Clr Calc Pharmacy 148.2 [facility] Comment:Provided height and weight: 170.18 cm,132.2 kg.eGFR (calculated from the MDRD study equation) and eCrCl(calculated from the Cockcroft-Gault equation) are based ondifferent parameters and may not yield comparable results.If eCrCl result is absurd, please check patient'sheight/weight. Estimated Glomerular Filt Rate >60 [facility] Comment:Chronic Kidney Disea se: Estimated GFR < 60 mL/min/1.15j1Eulgib Kidney Disease: Estimated GFR < 15 mL/min/1.73m2 Glucose 116(H) 60 - 115 mg/dL [facility] Calcium 9.2 8.4 - 10.2 mg/dL [facility] 06/12/2024 11:2 3 AM EST 06/12/2024 11:25 AM EST us Generic External Data Provider LAB BLOOD ORDERAB LES Final Result Performing Organization Address City/[facility]/ZIP Co de Phone Number [facility] [address] [place] [phone] * (ABNORMAL) Hepatic Function Panel (06/12/2024 11:23 AM EST) Pathologist [facility] Bilirubin, Total 0.2 0.0 - 1.0 mg/dL [facility] Bilirubin, Direct <0.2 0.0 - 0.5 mg/dL [facility] Aspartate Amino Transferase 21 5 - 31 U/L [facility] Alanine Aminotransferase 37(H) 0 - 31 U/L [facility] Total Protein 7.4 6.5 - 8.0 g/dL [facility] Albumin Level 4.1 3.5 - 5.0 g/dL [facility] Alkaline Phosphatase 62 39 - 117 U/L [facility] 06/12/2024 11:2 3 AM EST 06/12/2024 11:25 AM EST us Generic External Data Provider LAB BLOOD ORDERAB LES Final Result Performing Organization Address City/State/[facility] Co de Phone Number [facility] [address] [place] [phone] * (ABNORMAL) CBC auto differential (06/12/2024 11:23 AM EST) [facility] White Blood Count 10.8 4.8 - 10.8 X10*3/uL [facility] Red Blood Count 4.21 4.20 - 5.50 X10*6/uL [facility] Hemoglobin 12.7 12.0 - 16.0 g/dl [facility] Hematocrit 37.4 37.0 - 47.0 % [facility] Mean Corpuscular Volume 88.8 80.0 - 98.0 fL [facility] Mean Corpuscular Hemoglobin 30.2 27.0 - 33.0 pg [facility] Mean Corpuscular HGB Conc 34.0 31.0 - 35.0 g/dl [facility] Red Cell Distribution Width 13.4 11.0 - 16.0 % [facility] Platelet Count 333 160 - 400 X10*3/uL [facility] Mean Platelet Volume 9.8 9.4 - 12.3 fL [facility] Neutrophils Percent Auto 64.9 45 - 73 % [facility] Imm Gran Pct Auto 0.5(H) 0.0 - 0.4 % [facility] Lymphocytes Percent Auto 26.4 20 - 40 % [facility] Monocytes Percent Auto 6.3 2 - 11 % [facility] Eosinophils Percent Auto 1.3 0 - 4 % [facility] Basophils Percent Auto 0.6 0 - 2 % [facility] NRBC Pct Auto 0.0 0.0 - 0.2 /100WBC [facility] Neutrophils Absolute Auto 7.0 2.0 - 8.3 x10*3/uL [facility] Imm Gran Abs Auto 0.05(H) 0.00 - 0.03 X10*3/uL [facility] Lymphocytes Absolute Auto 2.9 1.2 - 4.9 X10*3/uL [facility] Monocytes Absolute Auto 0.7 0.1 - 1.2 X10*3/uL [facility] Eosinophils Absolute Auto 0.1 0.0 - 0.4 X10*3/uL [facility] Basophils Absolute Auto 0.1 0.0 - 0.2 X10*3/uL [facility] NRBC Abs Auto 0.000 0.0 - 0.012 X10*3/uL [facility] 06/12/2024 11:2 3 AM EST 06/12/2024 11:25 AM EST us Generic External Data Provider LAB BLOOD ORDERAB LES Final Result [facility] [address] [place] [phone] * CT Head w/o Contrast (06/12/2024 10:36 AM EST) Anatomical Region Laterality Modality Head, Neck Computed Tomogra phy 06/12/2024 10:3 6 AM EST Narrative 06/12/2024 12:39 PM EST ? [facility] ?[address] ?[place] [address] ? CT Scan Report ? Signed ? Patient: Eduard Sheets,Doll M ?MR# ?? : [id number] ? : 1985 ?Acct:[id number] ? Age/Sex: 38 / F ?ADM Date: 06/12/24 ? Loc: HO.ED ? Attending Dr: ? Ordering Physician: Karine Felton DO ?? Date of Service: 06/12/24 ?? Procedure(s): CT head/brain wo IV con ?? Accession Number(s): [id number] ? cc: Karine Felton DO; Aditi Carl DO ? Report Number: ?? [id number]: Total DLP = ??775.00 mGy-cm ?? EXAMINATION: ?? CT HEAD WITHOUT CONTRAST ? CLINICAL INFORMATION: ?? Left-sided headache ? COMPARISON: ?? None available. ? TECHNIQUE: ?? Contiguous axial imaging was performed from the skull base to vertex ?? without intravenous administration of contrast. ? This CT examination was performed using dose optimization techniques as ?? appropriate, variously including the following: ?? *Automated exposure control ?? *Adjustment of mA and/or kV according to patient size (this includes ?? techniques or standardized protocols for targeted exams where dose is ?? matched to indication/reason for exam; i.e. extremities or head) ?? *Use of iterative reconstruction technique ?? DLP: 775 mGy/cm. ? FINDINGS: ?? There is no acute intra-axial, extra-axial bleed, masses or midline ?? shift. There is no acute infarction evolution. The mcfarland to white matter ?? differentiation is maintained. The lateral ventricles are symmetrical ?? in size and configuration without enlargement. No abnormality seen in ?? the posterior fossa. Bone windows reveal no calvarial abnormality. No ?? scalp soft tissue body. There is mild mucoperiosteal thickening ?? bilateral sphenoid sinuses. Rest of paranasal sinuses and mastoid air ?? cells are well-aerated. ? CT/CT head/brain wo IV con ?? IMPRESSION: ?? No acute intracranial process seen. ? Electronically signed by: ??Mj Holliday MD ??06/12/2024 12:36 PM EST RP ? Dictated By: ?Miya,Mj S MD ? Signed By: ?<Electronically signed by Mj S MD Miya in OV> ?06/12/24 1236 ? DD/ 1036 ? TD/TT: 06/12/24 1224 ? Printing Pressman: MSM ? Procedure Note Donotuseinterpreter, Image - 06/12/[address] [address] [address] Scan Report Signed Patient: Fatou Marquis MMR# : [id number] : 1985Acct:[id number] Age/Sex: 38 / FADM Date: 06/12/24 Loc: HO.ED Attending Dr: Ordering Physician: Karine Felton DO Date of Service: 06/12/24 Procedure(s): CT head/brain wo IV con Accession Number(s): [id number] cc: Karine Felton DO; Aditi Carl DO Report Number: [id number]: Total DLP = 775.00 mGy-cm EXAMINATION: CT HEAD WITHOUT CONTRAST CLINICAL INFORMATION: Left-sided headache COMPARISON: None available. TECHNIQUE: Contiguous axial imaging was performed from the skull base to vertex without intravenous administration of contrast. This CT examination was performed using dose optimization techniques as appropriate, variously including the following: *Automated exposure control *Adjustment of mA and/or kV according to patient size (this includes techniques or standardized protocols for targeted exams where dose is matched to indication/reason for exam; i.e. extremities or head) *Use of iterative reconstruction technique DLP: 775 mGy/cm. FINDINGS: There is no acute intra-axial, extra-axial bleed, masses or midline shift. There is no acute infarction evolution. The mcfarland to white matter differentiation is maintained. The lateral ventricles are symmetrical in size and configuration without enlargement. No abnormality seen in the posterior fossa. Bone windows reveal no calvarial abnormality. No scalp soft tissue body. There is mild mucoperiosteal thickening bilateral sphenoid sinuses. Rest of paranasal sinuses and mastoid air cells are well-aerated. CT/CT head/brain wo IV con IMPRESSION: No acute intracranial process seen. Electronically signed by: Mj Holliday MD 06/12/2024 12:36 PM EST RP Dictated By: Mj Holliday MD Signed By: <Electronically signed by Mj Holliday MD in OV> 06/12/24 1236 DD/ 1036 TD/TT: 06/12/24 1224 Printing Pressman: [facility] External Provider IMG CT PROCEDURES Final Result documented in this encounter Visit Diagnoses Not on filedocumented in this encounter Care Teams Business Sales Consultant Relationship Specialty Start Date End Date Aditi Carl DO [address] [place] [address] PCP - General Family Medicine 04/08/24 documented as of this encounter
--- OUTSIDE RECORDS SUMMARY | 2024-06-12 15:24 | XMS_ITS | Encounter Summary ---
Author Organization [employer] Address [address] [facility] 7t [place] [address] Care Team Providers Care Natural Resource Technician Name Role Phone Aditi Carl DO Primary Care Provider [phone] Encounter Details Date Type Department Care Team (Late st Contact Info) Description 05/23/2024 Telephone [facility] [address] [place] [address] Aditi Carl DO [address] [place], [place] [phone] Social History Tobacco Use Types Packs/Day Years [...] Telephone Encounter - Mary Anne Arreola - 05/23/2024 8:51 AM EST Incoming fax from [facility] requesting MRI Head/Brain order to be update to MRA Brain/Head wo contrast . Please review and advise . documented in this encounter Plan of Treatment Not on file documented as of this encounter Visit Diagnoses Not on filedocumented in this encounter Care Teams Natural Resource Technician Relationship Specialty Start Date End Date Aditi Carl DO [address] [place] [phone] PCP - General Family Medicine 04/08/24 documented as of this encounter
--- OUTSIDE RECORDS SUMMARY | 2024-06-12 15:24 | XMS_ITS | Encounter Summary ---
Author Organization [employer] Address [address] [facility] [place] [address] Care Team Providers Care Claim Benefit Specialist Name Role Phone GeminiAditi bustamante Primary Care Provider [phone] Encounter Details Date Type Department Care Team (Late st Contact Info) Description 05/30/2024 Telephone [facility] [address] [place] [address] Josué Bogue, [place] Social History Tobacco Use Types Packs/Day Years [...] encounter Miscellaneous Notes * Telephone Encounter - Courtney Moses [place] - 05/30/2024 2:39 PM EST DME RX for wrist braces generated and placed on providers desk for signature. documented in this encounter Plan of Treatment Not on file documented as of this encounter Visit Diagnoses Not on filedocumented in this encounter Care Teams Claim Benefit Specialist Relationship Specialty Start Date End Date Aditi Carl DO [address] [place] [address] PCP - General Family Medicine 04/08/24 documented as of this encounter
--- OUTSIDE RECORDS SUMMARY | 2024-06-12 15:24 | XMS_ITS | Clinical Summary ---
Author Organization [employer] Address [address] [facility] [address] [place] [address] Care Team Providers Care Director Operations Broadcast Name Role Phone GeminiAditi bustamante Primary Care Provider [phone] Allergies No known active allergies Medications acetaminophen (Tylenol 8 Hour) 650 MG ER tablet take 1 Tablet by oral route every 8 hours as needed as needed for PAIN AND/OR FEVER 60 tablet 3 Active escitalopram (Lexapro) 20 MG tabletIndication s:Mood disorder (CMS/HCC),Posttr aumatic stress disorder Take 20 mg by mouth in the morning. 4 Active clonazePAM (KlonoPIN) 2 MG tabletIndication s:Mood disorder (CMS/HCC),Posttr aumatic stress disorder Take 2 mg by mouth if needed in the morning and at bedtime. Active QUEtiapine (SEROquel) 100 MG tabletIndication s:Mood disorder (CMS/HCC),Posttr aumatic stress disorder Take 100 mg by mouth at bedtime. 4 Active busPIRone (Buspar) 30 MG tabletIndication s:Mood disorder (CMS/HCC),Posttr aumatic stress disorder Take 30 mg by mouth 2 times daily. 4 Active Blood Pressure kit Check blood pressure three times a week 1 kit 4 Active hydroCHLOROthiaz ross (HYDRODiuril) 25 MG tablet Take 1 tablet (25 mg) by mouth Once per day. 90 tablet 1 4 04/08/20 25 Active baclofen (Lioresal) 10 MG tablet Take 1 tablet (10 mg) by mouth if needed in the morning, at noon, and at bedtime for muscle spasms. 60 tablet 3 4 04/08/20 25 Active lidocaine (Lidoderm) 5 % patch Apply 1 patch topically if needed each day for mild pain. Remove & discard patch within 12 hours or as directed by MD. 30 patch 3 4 Active Diclofenac Sodium 1 % gel APPLY 2 GRAMS TOPICALLY TO THE AFFECTED AREA FOUR TIMES DAILY NEEDED FOR PAIN 150 g 3 4 Active cholecalciferol (Vitamin D-3) 50 MCG (2000 UT) capsule Take 1 capsule (50 mcg) by mouth Once per day. 90 capsule 3 4 04/12/20 25 Active omeprazole (PriLOSEC) [address] Nascimento ns:Gastroesophag eal reflux disease, unspecified whether esophagitis present TAKE 1 CAPSULE(20 MG) BY MOUTH EVERY 12 HOURS 180 capsule Active famotidine (Pepcid) 40 MG tablet Take 1 tablet (40 mg) by mouth at bedtime. 30 tablet 3 4 05/02/20 25 Active Active Problems Problem Noted Date Diagnosed Date History of gestational diabetes 04/08/2024 Post traumatic stress disorder 04/08/2024 Chronic bipolar disorder 04/08/2024 Anxiety 04/08/2024 Bilateral carpal tunnel syndrome 03/19/2024 Assessment & Plan (05/02/2024 11:51 AM EST): Hx of carpel tunnel surgery on right hand without relief. -ordered nerve conduction study 03/19/24. -will refer to specialist after results. 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 Nurses to reach out to pt to offer OT/wrist splint vs return to surgeon. Will place referral if pt desires. Essential hypertension 03/19/2024 Assessment & Plan (03/19/2024 2:44 PM EDT): Initial BP in clinic was elevated, repeat WNL. -Discussed giving BP monitor and instructed to monitor at home. Nonintractable headache 03/19/2024 Assessment & Plan (03/19/2024 3:09 PM EDT): New headache x3 days waxing and waning. Pertinent negatives: No fevers. No worsening with laying down or standing up. No vomiting. No changes in mental status/cognition. No LOC. No difficulty with language or swallowing. No weakness. Pertinent Positives: She denies a history of recent head injury. Prior neurological history: negative for no neurological problems. -ordered labs 03/19/24 Chronic gastroesophageal reflux disease 06/25/19 19 Assessment & Plan (03/19/2024 3:10 PM EDT): Pt Last seen in 2020. Hx of GERD -refilled Omeprazole 20 mg Dyslipidemia 03/16/2015 Elevated fasting glucose 03/16/2015 Fibromyalgia 03/16/2015 BMI 40.0-44.9, adult 03/16/2015 Resolved Problems Problem Noted Date Diagnosed Date Resolved Date Mood disorder 03/16/2015 04/08/2024 Assessment & Plan (03/19/2024 3:10 PM EDT): Pt Last seen in 2020. Follows with therapist and psychiatrist. -refilled escitalopram (Lexapro) 20 MG tablet, clonazePAM (KlonoPIN) 2 MG tablet, QUEtiapine (SEROquel) 100 MG tablet, and busPIRone (Buspar) 30 MG tablet. Posttraumatic stress disorder 03/16/2015 04/08/2024 Assessment & Plan (03/19/2024 3:10 PM EDT): Pt Last seen in 2020. Follows with therapist and psychiatrist. -refilled escitalopram (Lexapro) 20 MG tablet, clonazePAM (KlonoPIN) 2 MG tablet, QUEtiapine (SEROquel) 100 MG tablet, and busPIRone (Buspar) 30 MG tablet. Encounters Date Type Department Care Team Description 06/12/2024 Orders Only GENERIC EXTERNAL DATA DEPARTMENT Provider, Generic External Data 06/05/2024 Telephone [facility] [address] [place] [address] Aditi Carl DO 06/03/2024 Telephone [facility] [address] [place] [address] Courntey Moses [place] Durable Medical Equipment 05/30/2024 Telephone [facility] [address] [place] [address] Josué CourtneyBERRY paul 05/23/2024 Telephone [facility] [address] [place] [phone] Aditi Carl DO 05/06/[address] [address] Ivis Fregoso MD 05/02/[address] [address] Ivis Fregoso MD Results 05/01/2024 9:00 AM EST Procedure Visit [address] [address] Aditi Carl DO Encounter for gynecological examination without abnormal finding 05/01/2024 Travel 04/28/2024 Refill [facility] [address] [place] [phone] Ivis Fregoso MD Gastroesophageal reflux disease, unspecified whether esophagitis present 04/12/[address] [address] Sandy Amin RN 04/08/2024 10:45 AM EST Office Visit [address] [address] Aditi Carl DO Essential hypertension (Primary Dx); Post traumatic stress disorder; Fibromyalgia; Chronic gastroesophageal reflux disease; Pain in both hands; Breast abscess; Family history of brain aneurysm 04/08/2024 Travel 03/29/2024 Patient Outreach [address] [address] Aditi Carl DO Care Coordination (CHW outreach for SDOH food needs-referral completed /) 03/29/2024 Patient Outreach [address] [address] Aditi Carl DO Pre-visit Planning (SDOH Screening positive and Tobacco screening negative) 03/19/2024 2:40 PM EDT Office Visit [facility] [address] [place] [phone] Ivis Fregoso MD Nonintractable headache, unspecified chronicity pattern, unspecified headache type (Primary Dx); Elevated blood pressure reading in office without diagnosis of hypertension; Bilateral carpal tunnel syndrome; Gastroesophageal reflux disease, unspecified whether esophagitis present; Mood disorder (CMS/HCC); Posttraumatic stress disorder; Fibromyositis 03/19/2024 Telephone [facility] [address] [place], [place] [phone] Ivis Fregoso MD new pt appt (Pt was seen [address] Carl. Will need new pt appt per Dr. Fregoso. ) from Last 3 Months Immunizations Name Administration Dates Next Due Hep A, Adult 11/04/2010 Hep B, adult 12/04/2013,11/04/2010 Influenza injectable quadriv alent IIV4 with preservative 02/16/2018,04/05/2017,03/16/2015 Influenza injectable quadriv alent preservative free 03/26/2020,05/09/2016 Influenza, IIV3, injectable 03/06/2014 Influenza, Split (incl. papo fied surface antigen) 02/22/2013,01/19/2012 MMR 01/06/2014,12/04/2013 Pneumococcal Polysaccharide PPSV23 10/18/2016 TD (adult), 2 Lf tetanus tox oid, preservative free, adsorbed 03/26/2020 Td (adult), 5 Lf tetanus tox oid, preservative free, adsorbed 11/19/2012 Tdap 10/26/2015,02/04/2010 Varicella 01/06/2014,12/04/2013 Social History Tobacco Use Types Packs/Day Years Used Date Smoking Tobacco: Former Cigarettes Passive Smoke Exposure: Past Smokeless Tobacco: Never Tobacco Cessation:Counseling Given: Not Answered Alcohol Use Standard Drinks/Week Comments Not Currently [...] Orientation Straight 03/21/2022 10 :21 AM EDT Last Filed Vital Signs Vital Sign Reading Time Taken Comments Blood Pressure 120/78 05/01/2024 8:58 AM EST Pulse 90 05/01/2024 8:58 AM EST Temperature 37 ??C (98.6 ??F) 05/01/2024 8:58 AM EST Respiratory Rate 17 05/01/2024 8:58 AM EST Oxygen Saturation 99% 03/19/2024 2:06 PM EDT RA Inhaled Oxygen Concentration - - Weight 127 kg (279 lb) 05/01/2024 8:58 AM EST Height 171.5 cm (5' 7.5 ) 05/01/2024 8:58 AM EST Body Mass Index 43.05 05/01/2024 8:58 AM EST Plan of Treatment Health Maintenance Due Date Last Done Comments Depression Screening 1985 Alcohol/Substance Use Screening 1997 Family Planning (PISQ) 2000 Hepatitis B Vaccines (3 of 3 - 19+ 3-dose series) 01/29/2014 12/04/2013, 11/04/2010 HPV/Cotest 02/16/2023 02/16/2018 COVID-19 Vaccine ( season) 2024 08/10/2021, 08/28/2020 Influenza Vaccine (#1) 2024 , 02/16/2018, 04/05/2017, Additional history exists SDOH Screening 03/29/2025 03/29/2024 Diabetes: Hemoglobin A1C 04/10/2025 04/10/2024, 08/21 Tobacco Screening 05/01/2025 05/01/2024 Cervical Cancer Screening 05/01/2027 Pap Smear 05/01/2027 05/01/2024 Lipid Panel 04/10/2029 04/10/2024, 09/08/2020 DTaP/Tdap/Td Vaccines (5 - Td or Tdap) 03/26/2030 03/26/2020, 10/26/2015, 11/19/2012, Additional history exists Zoster Vaccines (1 of 2) 08/10/2035 RSV Patients and Patients Aged 60 years or older (1 - 1-dose 75+ series) 2060 Hepatitis A Vaccines Aged Out 11/04/2010 No long er eligible based on patient's age to complete this topic Pneumococcal Vaccine: Pediatrics (0 to 5 Years) and At-Risk Patients (6 to 64 Years) Aged Out 10/18/2016 No longer eligible based on patient's age to complete this topic HIV Screening Completed 04/10/2024, 09/08/2020 Hepatitis C Screening Completed 04/10/2024, 021 HIB Vaccines Aged Out No longer eligi ble based on patient's age to complete this topic HPV Vaccines Aged Out No longer eligi ble based on patient's age to complete this topic IPV Vaccines Aged Out No longer eligi ble based on patient's age to complete this topic Meningococcal Vaccine Aged Out No simran tracey eligible based on patient's age to complete this topic RSV under 20 months Aged Out No longe r eligible based on patient's age to complete this topic Rotavirus Vaccines Aged Out No longer eligible based on patient's age to complete this topic Procedures Procedure Name Priority Date/Time Associated Diagnosis Comments HCG, TOTAL, QN Routine 06/12/2024 11:23 AM EST MAGNESIUM Routine 06/12/2024 11:23 AM EST BASIC METABOLIC PANEL Routine 06/12/2024 11:23 AM EST HEPATIC FUNCTION PANEL Routine 06/12/2024 11:23 AM EST CBC WITH AUTO DIFFERENTIAL Routine 06/12/2024 11:23 AM EST SARS COV2/INFLUENZA A/B AND RSV RNA QL NAAT Routine 06/12/2024 11:[address] HEAD WO CONTRAST Routine 06/12/2024 1 0:36 AM EST CHLAMYDIA/N. GONORRHOEAE RNA, TMA, UROGENITAL Routine 05/01/2024 6:23 PM EST Encounter for gynecological examination without abnormal finding PAP SMEAR Routine 05/01/2024 9:42 AM EST Encounter for gynecological examination without abnormal finding CBC WITH AUTO DIFFERENTIAL Routine 04/10/2024 12:35 PM EST Essential hypertension IRON AND TOTAL IRON BINDING CAPACITY Routine 04/10/2024 12:35 PM EST Essential hypertension VITAMIN B12/FOLATE, SERUM PANEL Routine 04/10/2024 12:35 PM EST Essential hypertension HEPATITIS A ANTIBODY, TOTAL Routine 04/10/2024 12:35 PM EST Essential hypertension HEPATITIS B CORE AB TOTAL Routine 04/10/2024 12:35 PM EST Essential hypertension HEPATITIS B SURFACE ANTIBODY, QUALITATIVE Routine 04/10/2024 12:35 PM EST Essential hypertension RPR (MONITOR) W/REFL TITER Routine 04/10/2024 12:35 PM EST Essential hypertension HEPATITIS C AB W/REFL TO HCV RNA, QN, PCR Routine 04/10/2024 12:35 PM EST Essential hypertension HIV 1/2 ANTIGEN/ANTIBODY, FOURTH GENERATION W/RFL Routine 04/10/2024 12:35 PM EST Essential hypertension HEPATITIS B SURFACE ANTIGEN, EIA Routine 04/10/2024 12:35 PM EST Essential hypertension HEMOGLOBIN A1C Routine 04/10/2024 12:35 PM EST Essential hypertension HEPATIC FUNCTION PANEL Routine 04/10/2024 12:35 PM EST Essential hypertension TSH Routine 04/10/2024 12:35 PM EST Essential hypertension LIPID PANEL, STANDARD Routine 04/10/2024 12:35 PM EST Essential hypertension TSH W/REFLEX TO FT4 Routine 04/10/2024 1 2:35 PM EST Nonintractable headache, unspecified chronicity pattern, unspecified headache type BASIC METABOLIC PANEL Routine 04/10/2024 12:35 PM EST Nonintractable headache, unspecified chronicity pattern, unspecified headache type FERRITIN Routine 04/10/2024 12:33 PM EST Essential hypertension BASIC METABOLIC PANEL Routine 04/10/2024 12:33 PM EST Essential hypertension VITAMIN D,25-OH,TOTAL,IA Routine 04/10/2024 12:33 PM EST Essential hypertension T4, FREE Routine 04/10/2024 12:33 PM EST Essential hypertension ZZZ HISTORICAL HPV E6/E7 RFLX ELLEN 16 18/45 Routine 02/16/2018 11:34 AM EDT from Last 3 Months or Most Recently Relevant to Health Maintenance Results * SARS-CoV-2 RNA, Influenza A/B, and RSV RNA, Ql NAAT (06/12/2024 11:23 AM EST) Influenza A PCR NEGATIVE Negative [facility] Influenza B PCR NEGATIVE Negative [facility] Resp Syncy Virus RNA Qual PCR NEGATIVE Negative [facility] SARS COV2 PCR NEGATIVE Negative [facility] Comment:All test results mus t be [...] use by authorized laboratories.Testing performed on the [employer] GeneXpert utilizingreal-time RT-PCR.All SARS CoV2 and positive influenza A/B results arereported to [facility]. 06/12/2024 11:2 3 AM EST 06/12/2024 11:25 AM EST Generic External Data Provider LAB MICROBIOLOGY - GENERAL ORDERABLES Final Result [facility] [address] [place] [phone] * (ABNORMAL) CBC auto differential (06/12/2024 11:23 AM EST) Only the most recent of2 resultswithin the time period is included. White Blood Count 10.8 4.8 - 10.8 X10*3/uL [facility] Red Blood Count 4.21 4.20 - 5.50 X10*6/uL [facility] Hemoglobin 12.7 12.0 - 16.0 g/dl [facility] Hematocrit 37.4 37.0 - 47.0 % [facility] Mean Corpuscular Volume 88.8 80.0 - 98.0 fL [facility] Mean Corpuscular Hemoglobin 30.2 27.0 - 33.0 pg [facility] Mean Corpuscular HGB Conc 34.0 31.0 - 35.0 g/dl [facility] Red Cell Distribution Width 13.4 11.0 - 16.0 % [facility] Platelet Count 333 160 - 400 X10*3/uL [facility] Mean Platelet Volume 9.8 9.4 - 12.3 fL [facility] Neutrophils Percent Auto 64.9 45 - 73 % [facility] Imm Gran Pct Auto 0.5(H) 0.0 - 0.4 % [facility] Lymphocytes Percent Auto 26.4 20 - 40 % [facility] Monocytes Percent Auto 6.3 2 - 11 % [facility] Eosinophils Percent Auto 1.3 0 - 4 % [facility] Basophils Percent Auto 0.6 0 - 2 % [facility] NRBC Pct Auto 0.0 0.0 - 0.2 /100WBC [facility] Neutrophils Absolute Auto 7.0 2.0 - 8.3 x10*3/uL [facility] Imm Gran Abs Auto 0.05(H) 0.00 - 0.03 X10*3/uL [facility] Lymphocytes Absolute Auto 2.9 1.2 - 4.9 X10*3/uL [facility] Monocytes Absolute Auto 0.7 0.1 - 1.2 X10*3/uL [facility] Eosinophils Absolute Auto 0.1 0.0 - 0.4 X10*3/uL [facility] Basophils Absolute Auto 0.1 0.0 - 0.2 X10*3/uL [facility] NRBC Abs Auto 0.000 0.0 - 0.012 X10*3/uL [facility] 06/12/2024 11:2 3 AM EST 06/12/2024 11:25 AM EST us Generic External Data Provider LAB BLOOD ORDERAB LES Final Result [facility] [address] [place] [phone] * hCG, Total, Quantitative (06/12/2024 11:23 AM EST) HCG Quantitative <2 mIU/mL [facility] Comment:Weeks post LMP Appro ximate hCG(Last Menstrual Period) Range (mIU/ml)3 - 4 weeks 9 - 1304 - 5 weeks 75 - 2,6005 - 6 weeks 850 - 20,8006 - 7 weeks 4000 - 100,2007 - 12 weeks 11,500 - 289,07007 - 16 weeks 18,300 - 137,65276 - 29 weeks (2nd trimester) 1,400 - 53,62434 - 41 weeks (3rd trimester) 940 - [...] ORDERAB LES Final Result Performing Organization Address [facility] de Phone Number [facility] [address] [place] [phone] * Magnesium (06/12/2024 11:23 AM EST) Magnesium 2.2 1.6 - 2.6 mg/dL [facility] 06/12/2024 11:2 3 AM EST 06/12/2024 11:25 AM EST Generic External Data Provider LAB BLOOD ORDERAB LES Final Result Performing Organization Address [facility] de Phone Number [facility] [address] [place] [phone] * (ABNORMAL) Hepatic Function Panel (06/12/2024 11:23 AM EST) Only the most recent of2 resultswithin the time period is included. Bilirubin, Total 0.2 0.0 - 1.0 mg/dL [facility] Bilirubin, Direct <0.2 0.0 - 0.5 mg/dL [facility] Aspartate Amino Transferase 21 5 - 31 U/L [facility] Alanine Aminotransferase 37(H) 0 - 31 U/L [facility] Total Protein 7.4 6.5 - 8.0 g/dL [facility] Albumin Level 4.1 3.5 - 5.0 g/dL [facility] Alkaline Phosphatase 62 39 - 117 U/L [facility] 06/12/2024 11:2 3 AM EST 06/12/2024 11:25 AM EST us Generic External Data Provider LAB BLOOD ORDERAB LES Final Result [facility] [address] [place] [phone] * (ABNORMAL) Basic Metabolic Panel (06/12/2024 11:23 AM EST) Only the most recent of3 resultswithin the time period is included. Sodium 139 135 - 145 mmol/L [facility] Potassium 4.0 3.3 - 5.1 mmol/L [facility] Chloride 110(H) 96 - 108 mmol/L [facility] Carbon Dioxide 24 22 - 29 mmol/L [facility] Anion Gap 9(L) 12 - 20 [facility] Urea Nitrogen (BUN) 13 9 - 16 mg/dL [facility] Creatinine, Serum 0.73 0.5 - 1.4 mg/dL [facility] Creatinine Clr Calc Pharmacy 148.2 [facility] Comment:Provided height and weight: 170.18 cm,132.2 kg.eGFR (calculated from the MDRD study equation) and eCrCl(calculated from the Cockcroft-Gault equation) are based ondifferent parameters and may not yield comparable results.If eCrCl result is absurd, please check patient'sheight/weight. Estimated Glomerular Filt Rate >60 [facility] Comment:Chronic Kidney Disea se: Estimated GFR < 60 mL/min/[id number] Kidney Disease: Estimated GFR < 15 mL/min/1.73m2 Glucose 116(H) 60 - 115 mg/dL [facility] Calcium 9.2 8.4 - 10.2 mg/dL [facility] 06/12/2024 11:2 3 AM EST 06/12/2024 11:25 AM EST us Generic External Data Provider LAB BLOOD ORDERAB LES Final Result [facility] [address] [place] [phone] * CT Head w/o Contrast (06/12/2024 10:36 AM EST) Anatomical Region Laterality Modality Head, Neck Computed Tomogra phy 06/12/2024 10:3 6 AM EST Narrative 06/12/2024 12:39 PM EST ? [facility] ?[address] ?[place] [address] ? CT Scan Report ? Signed ? Patient: Fatou Marquis ?MR# ?? : [id number] ? : 1985 ?Acct:[id number] ? Age/Sex: 38 / F ?ADM Date: 06/12/24 ? Loc: HO.ED ? Attending Dr: ? Ordering Physician: Karine Felton DO ?? Date of Service: 06/12/24 ?? Procedure(s): CT head/brain wo IV con ?? Accession Number(s): [id number] ? cc: Karine Felton DO; Aditi Carl DO ? Report Number: ?? [id number]: Total DLP = ??775.00 mGy-cm ?? EXAMINATION: [...] 12:36 PM EST RP ? Dictated By: ?Mj Holliday MD ? Signed By: ?<Electronically signed by Mj Holliday MD in OV> ?06/12/24 1236 ? DD/ 1036 ? TD/TT: 06/12/24 1224 ? Operation Shift Supervisor: MSM ? Procedure Note Ling [place] - 06/12/[address] [place] [address] [address] Scan Report Signed Patient: Fatou Marquis MMR# : [id number] : 1985Acct:[id number] Age/Sex: 38 / FADM Date: 06/12/24 Loc: HO.ED Attending Dr: Ordering Physician: Karine Felton DO Date of Service: 06/12/24 Procedure(s): CT head/brain wo IV con Accession Number(s): [id number] cc: Karine Felton DO; Aditi Carl DO Report Number: [id number]: Total DLP = 775.00 mGy-cm EXAMINATION: CT [...] 06/12/24 1236 DD/ 1036 TD/TT: 06/12/24 1224 Operation Shift Supervisor: RAUDEL [facility] External Provider IMG CT PROCEDURES Final Result * Chlamydia/N. Gonorrhoeae RNA, TMA, Urogenitial (05/01/2024 6:23 PM EST) CT PCR NOT DETECTED Not Detect. [facility] Comment:A not detected test result does not exclude the possibilityof infection because test results can be affected byimproper specimen collection, concurrent antibiotic therapy,or the number of organisms in the specimen which may bebelow the sensitivity of the test. As with many diagnostictests, results from the Xpert CT/NG assay should beinterpreted in conjunction with other laboratory andclinical data available to the clinician.Xpert CT/NG performance has not been evaluated in patientsless than 14 years of age. The assay should not be used forthe evaluationof suspected sexual abuse or for other medico-legalindications. Additional testing is recommended in anycircumstance when false positive or false negative resultscould lead to adverse medical, social or psychologicalconsequences. NG PCR NOT DETECTED Not Detect. [facility] Comment:A not detected test result does not exclude the possibilityof infection because test results can be affected byimproper specimen collection, concurrent antibiotic therapy,or the number of organisms in the specimen which may bebelow the sensitivity of the test. As with many diagnostictests, results from the Xpert CT/NG assay should beinterpreted in conjunction with other laboratory andclinical data available to the clinician.Xpert CT/NG performance has not been evaluated in patientsless than 14 years of age. The assay should not be used forthe evaluationof suspected sexual abuse or for other medico-legalindications. Additional testing is recommended in anycircumstance when false positive or false negative resultscould lead to adverse medical, social or psychologicalconsequences. Swab Cervical swab / Unknown 05/01/2024 6:23 PM EST 05/02/2024 2:58 AM EST [facility] - 05/02/2024 2:58 AM EST Vaginal us Aditi Carl DO LAB MICROBIOLOGY - GENERAL O RDERABLES Final Result Performing Organization Address City/State/[facility] Co de Phone Number [facility] [address] [place] [phone] * Pap Smear (05/01/2024 9:42 AM EST) Swab Cervix uteri structure / Unknown 05/01/2024 9:42 AM EST 05/02/2024 9:00 AM EST [facility] - 05/07/2024 10:02 AM EST ----- ------- Name: Fatou Marquis ? Age/Sex: 38/F ? : 1985 Unit#: [id number] ?? Attend Dr: Aditi Carl DO ?Re05/01/24 ?Status: DEP REF ? Location: HO.HHCLNP ? Disch: ? ----- ------- SPEC : [id number] ?RECD: 05/02/24 ? STATUS: ??SOUT ? REQ NUM: [id number] ? ANN: 05/01/24 ? SUBM DR: Aditi Carl DO ? ENTERED: ??05/02/24 ?SP TYPE: Pap Smr ?OTHR DR: ? ORDERED: ??Pap Smear ? Interpretation ?? Satisfactory for evaluation. ?? Negative for intraepithelial lesion or malignancy. ? HPV High Risk: ??Negative ? HPV Genotyping 16: ??Negative ?? HPV Genotyping 18: ??Negative ?Clinical Information LMP: 04/19/2024 Previous PAP test: Unknown date/findings ? Material Received ?? ThinPrep-Cervical ----- ------- Signed (signature on file) KARINA Houston (ASCP) 05/07/24 1002 ? ----- ------- ? END OF REPORT ? us Aditi Carl DO LAB CYTOLOGY ORDERABLES Bisi zhou Result [facility] [address] [place] [phone] * Vitamin B12 (Cobalamin) and Folate Panel, Serum (04/10/2024 12:35 PM EST) Vitamin B12 461 200 - 900 pg/mL [facility] Comment:NORMAL 200-900 PG/ML INDETERMINATE 160-199 PG/ML DEFICIENT < 160 PG/ML Folate 4.6 > or = 4.0 ng/mL [facility] Comment:Reference Values:> o r = 4.0 ng/mL< 4.0 ng/mL suggests folate deficiency Methotrexate, aminopterin and folinic acid(leucovorin) are chemotherapeutic agents whose molecularstructures are similar to folate; therefore, the Architectfolate assay cannot be used for patients using these drugs. Blood 04/10/2024 12:3 5 PM EST 04/10/2024 6:41 PM EST Aditi Carl DO LAB BLOOD ORDERABLES Final R esult Performing Organization Address [facility] Co de Phone Number [facility] [address] [place] [address] [phone] * TSH W/Reflex to FT4 (04/10/2024 12:35 PM EST) TSH reflex Free T4 2.48 0.32 - 4.0 uIU/mL [facility] Blood Venous blood specimen / Unknown 04/10/2024 12:35 PM EST 04/10/2024 1:16 PM EST Ivis Fregoso MD LAB BLOOD ORDERABLES Final Result Performing Organization Address [facility] de Phone Number [facility] [address] [place] [address] [phone] * Hepatitis C Antibody with Reflex to HCV, RNA, Quantitative, Real-Time PCR (04/10/2024 12:35 PM EST) Hepatitis C Antibody Nonreactive Nonreactive [facility] Comment:Antibodies to HCV no t detected; does not exclude early acuteHCV infection. Blood Venous blood specimen / Unknown 04/10/2024 12:35 PM EST 04/10/2024 1:16 PM EST Aditi Carl DO LAB BLOOD ORDERABLES Final R esult Performing Organization Address [facility] Co de Phone Number [facility] [address] [place] [address] [phone] * Iron And Total Iron Binding Capacity (04/10/2024 12:35 PM EST) Iron 55 30 - 160 mcg/dL [facility] Total Iron Binding Capacity 285 228 - 428 mcg/dL [facility] Percent Iron Saturation 19 15 - 50 % [facility] Unsaturated Iron Binding 230 ug/dL [facility] Blood Venous blood specimen / Unknown 04/10/2024 12:35 PM EST 04/10/2024 1:16 PM EST Aditi Carl DO LAB BLOOD ORDERABLES Final R esult Performing Organization Address [facility] Co de Phone Number [facility] [address] [place] [address] [phone] * Hepatitis A Antibody, Total (04/10/2024 12:35 PM EST) Hepatitis A Antibody IgG REACTIVE Nonreactive [facility] Comment:The presence of IgG anti-HAV implies past HAV infection(recent or distant) or vaccination against HAV. Blood Venous blood specimen / Unknown 04/10/2024 12:35 PM EST 04/10/2024 1:16 PM EST Aditi Carl DO LAB BLOOD ORDERABLES Final R esult Performing Organization Address [facility] Co de Phone Number [facility] [address] [place] [address] [phone] * Hepatitis B surface antigen, EIA (04/10/2024 12:35 PM EST) Hepatitis B Surface Ag Negative Negative [facility] Blood Venous blood specimen / Unknown 04/10/2024 12:35 PM EST 04/10/2024 1:16 PM EST Aditi Carl DO LAB BLOOD ORDERABLES Final R esult Performing Organization Address City/[facility]/ZIP Co de Phone Number [facility] [address] [place] [phone] * Hepatitis B Core Antibody, Total (04/10/2024 12:35 PM EST) Hepatitis B Core Antibody Nonreactive Nonreactive [facility] Blood Venous blood specimen / Unknown 04/10/2024 12:35 PM EST 04/10/2024 1:16 PM EST us Aditi Carl DO LAB BLOOD ORDERABLES Final R esult Performing Organization Address [facility] Co de Phone Number [facility] [address] [place] [phone] * RPR (Monitor) with Reflex to??Titer (04/10/2024 12:35 PM EST) Pathologist [facility] [place] RPR (Monitor) w/Refl Titer NON-REACTI VE NON-REACT PITA [facility] Comment:THIS TEST WAS PERFOR MED AT:[facility] [place] [phone] BARKLEY MD Rapid Plasma Reagin Ab Titer TNP [facility] Blood Venous blood specimen / Unknown 04/10/2024 12:35 PM EST 04/10/2024 1:22 PM EST us Aditi Carl DO LAB BLOOD ORDERABLES Final R esult Performing Organization Address [facility] Co de Phone Number [facility] [address] [place] [phone] * HIV-1/2 Antigen and Antibodies, Fourth Generation, with Reflexes (04/10/2024 12:35 PM EST) HIV AB/AG Nonreactive Nonreactive [facility] Comment:HIV-1 p24 Ag and/or HIV-1/HIV-2 Ab not detected.A test result that is nonreactive does not exclude thepossibility of exposure to or infection with HIV-1 and/orHIV-2. Nonreactive results in this assay for individualswith prior exposure to HIV-1 and/or HIV-2 may be due toantigen and antibody levels that are below the limit ofdetection of this assay.[facility] HIV Ag/Ab Combo assay result andsupplemental assay results should be interpreted inconjunction with the patient's clinical presentation,history and other laboratory results. If the results areinconsistent with clinical evidence, additional testing issuggested to confirm the result. Blood Venous blood specimen / Unknown 04/10/2024 12:35 PM EST 04/10/2024 1:16 PM EST Aditi Carl LAB BLOOD ORDERABLES Final R esult Performing Organization Address [facility]/ZIP Co de Phone Number [facility] [address] [place] [address] [phone] * Hepatitis B Surface Antibody, Qualitative (04/10/2024 12:35 PM EST) ~Hepatitis B Surface Antibody GRAYZONE Nonreactive [facility] Comment:GRAYZONE: 8.00 mIU/m L TO 11.99 mIU/mLTHE IMMUNE STATUS OF THE INDIVIDUAL SHOULD BE FURTHERASSESSED BY CONSIDERING OTHER FACTORS, SUCH CLINICALSTATUS, FOLLOW-UP TESTING, ASSOCIATED RISK FACTORS, AND THEUSE OF ADDITIONAL DIAGNOSTIC INFORMATION. Blood Venous blood specimen / Unknown 04/10/2024 12:35 PM EST 04/10/2024 1:16 PM EST [facility] LAB BLOOD ORDERABLES Final R esult Performing Organization Address City/[facility]/ZIP Co de Phone Number [facility] [address] [place] [address] [phone] * TSH (04/10/2024 12:35 PM EST) Thyroid Stimulating Hormone 2.48 0.32 - 4.0 uIU/mL [facility] Comment:TSH 3rd Generation ( [employer]) Blood Venous blood specimen / Unknown 04/10/2024 12:35 PM EST 04/10/2024 1:16 PM EST Aditi Meseret DO LAB BLOOD ORDERABLES Final R esult Performing Organization Address [facility] Co de Phone Number [facility] [address] [place] [phone] * Hemoglobin A1c (04/10/2024 12:35 PM EST) Hemoglobin A1c 5.7 <6.0 % [facility] Comment:Hemoglobin A1C Refer ence Range Adults: 4.8 - 6.0 % Non diabetic: < 6.0 % Goal: < 7.0 %Additional Action Suggested: > 8.0 %Note: Hemoglobin A1c results are invalid for patients with abnormal amounts of HbF. Blood transfusions may impact the HbA1c concentration in the patient sample. Estimated Average Glucose 117 mg/dL [facility] Comment:eAG = Estimated ave rage glucose which is %A1C expressed asaverage glucose, using the formula of the [id number]-[id number] Glucose study (ADAG), Diabetes Care, Vol.31,#8,2007 Blood Venous blood specimen / Unknown 04/10/2024 12:35 PM EST 04/10/2024 1:22 PM EST Aditi Carl DO LAB BLOOD ORDERABLES Final R esult Performing Organization Address [facility] Co de Phone Number [facility] [address] [place] [phone] * (ABNORMAL) Lipid Panel, Standard (04/10/2024 12:35 PM EST) Triglycerides 161(H) <150 mg/dL [facility] Comment:Desirable Triglyceri de: less than 150 mg/dLBorderline High Triglyceride 150-199 mg/dLHigh Triglyceride: 200-499 mg/dLVery High Triglyceride: greater than or equal to 5OO mg/dL Cholesterol 128 <200 mg/dL [facility] Comment:Desirable Cholestero l: less than 200 mg/dLBorderline High Cholesterol: 200-239 mg/dLHigh Cholesterol: greater than 239 mg/dL LDL Cholesterol Calculated 47 <100 mg/dL [facility] Comment:Desirable LDL: less than 100 mg/dLNear Optimal/Above Optimal LDL: 110- 129 mg/dLBorderline High LDL: 130-159 mg/dLHigh LDL: 160-189 mg/dLVery High LDL: greater than or equal to 190 mg/dL HDL Cholesterol 49 >40 mg/dL [facility] Comment:Desirable HDL: great er than 40 mg/dL Note: This HDL assay may give artificially low results in patients with liver disease. Blood Venous blood specimen / Unknown 04/10/2024 12:35 PM EST 04/10/2024 1:16 PM EST us Aditi Carl DO LAB BLOOD ORDERABLES Final R esult [facility] [address] [place] [phone] * (ABNORMAL) Vitamin D, 25-Hydroxy, Total, Immunoassay (04/10/2024 12:33 PM EST) Vitamin D 25-OH Total 21.9(L) >30 ng/mL [facility] Comment:Health Based Referen ce Values*< 20 ng/mL Vmgfsxozf37-58 ng/mL Insufficient> 30 ng/mL Sufficient*Festus GUNTER. N Engl J Med. 2007;357:266-280Care must be taken in interpreting Vitamin D results fromdifferent laboratories and methodologies. Published datademonstrated that results from patients undergoinghemodialysis may show a negative bias when tested withvarious automated 25-OH vitamin D assays when compared toLC-MS/MS.When testing samples from patients whose predominant form ofVitamin D is Vitamin D2, such as patients receiving VitaminD2 supplementation, results that are subtherapeutic shouldbe confirmed with another method such as LC-MS/MS. Blood Venous blood specimen / Unknown 04/10/2024 12:33 PM EST 04/10/2024 1:16 PM EST Aditi Carl LAB BLOOD ORDERABLES Final R esult Performing Organization Address City/[facility] Co de Phone Number [facility] [address] [place] [phone] * T4, Free (04/10/2024 12:33 PM EST) Free T4 (Free Thyroxine) 0.98 0.71 - 1.85 ng/dL [facility] Blood Venous blood specimen / Unknown 04/10/2024 12:33 PM EST 04/10/2024 1:16 PM EST Aditi Carl LAB BLOOD ORDERABLES Final R esult Performing Organization Address [facility] Co de Phone Number [facility] [address] [place] [address] [phone] * Ferritin (04/10/2024 12:33 PM EST) Ferritin 97 10 - 122 ng/mL [facility] Blood Venous blood specimen / Unknown 04/10/2024 12:33 PM EST 04/10/2024 1:16 PM EST Aditi Carl LAB BLOOD ORDERABLES Final R esult Performing Organization Address [facility] Co de Phone Number [facility] [address] [place] [address] [phone] * HPV E6/E7 RFLX ELLEN 16 18/45 (02/16/2018 11:34 AM EDT) HPV 18/45 RNA Test not performed [facility] HPV 16 RNA Test not performed [facility] ADDITIONAL TESTING Not indicated () [facility] Comment: Test Performed by [employer], [employer] [facility], [address] [place] [address] Marco Antonio Rouse M.D., Ph.D., Director of Laboratories , CLIA [id number] HPV mRNA E6/E7 Not Detected NOT DETECTED [facility] Comment: This test was performed using the APTIMA(R) HPV Assay ([employer] This assay detects E6/E7 viral messenger RNA (mRNA) from 14 high-risk HPV types (16,18,31,33,35,39,45,51, 52,56,58,59,66,68). For additional information please refer to: http://education.Zeo/faq/QCK373j7 (This link is being provided for informational/ educational purposes only.) The analytical performance characteristics of this assay have been determined by [employer] [place], [place]. The modifications have not been cleared or approved by the FDA. This assay has been validated pursuant to the CLIA regulations and is used for clinical purposes. Please note: ??Effective 02/01/2016, HPV testing will be performed using [employer]'s APTIMA test which targets mRNA. Detecting mRNA instead of DNA, as in older methods, offers significant improvements in specificity. 02/16/2018 11:3 4 AM EDT us Aditi Carl DO HISTORICAL/NON ORDERABLE LAB S Final Result [facility] [address] from Last 3 Months or Most Recently Relevant to Health Maintenance Insurance [facility] [address] C3 Care Teams Director Operations Broadcast Relationship Specialty Start Date End Date Aditi Carl DO [address] [place] [phone] PCP - General Family Medicine 04/08/24
--- OUTSIDE RECORDS SUMMARY | 2024-06-12 15:24 | XMS_ITS | Encounter Summary ---
Author Organization [employer] Address [address] [place] [address] Care Team Providers Care Beer Brewer Name Role Phone GeminiAditi bustamante Primary Care Provider Reason for Visit * Reason Onset Date Comments Durable Medical Equipment 06/03/2024 Encounter Details Date Type Department Care Team (Late st Contact Info) Description 06/03/2024 Telephone [facility] [address] [place], [place] [phone] [place] Durable Medical Equipment Social History Tobacco Use Types Packs/Day Years [...] Telephone Encounter - Courtney Moses [place] - 06/03/2024 11:41 AM EST DME for bilateral wrist braces signed and faxed to Suhail . Confirmation received and sentto scan. If patient calls to check status on above, please advise them to contact Su[facility]ail at [phone]. documented in this encounter Plan of Treatment Not on file documented as of this encounter Visit Diagnoses Not on filedocumented in this encounter Care Teams Beer Brewer Relationship Specialty Start Date End Date Aditi Carl DO [address] [place] [address] PCP - General Family Medicine 04/08/24 documented as of this encounter
[2024-06-12] MEDS: diphenhydrAMINE HCL 50 MG/ML VIAL 25 MG IVPUSH (16:13)
[2024-06-12] MEDS: Metoclopramide HCl 10 MG/2 ML VIAL IVPUSH (16:13)
[2024-06-12] MEDS: Ketorolac Tromethamine 15 MG/ML VIAL IVPUSH (16:14)
[2024-06-12] MEDS: 0.9 % Sodium Chloride 1,000 ML 999 ML IV (16:17)
[2024-06-12] MEDS: iohexoL 350 MG/ML 100 ML INFUS..BTL IV (17:16)
[2024-06-12 18:52] VITALS: BP 150/81; PULSE 57; RESP 18; TEMP 37; O2SAT 99
[2024-06-12 21:10] VITALS: BP 00/00; PULSE 0; RESP 20; TEMP -17.7; TEMP 0
== END 2024-06-12 21:11 | disposition home or self-care (01) ==
PROVIDERS: Emergency Medicine; Emergency Provider Emergency Medicine Emergency Medical Services; PCP Family Medicine
DX: R51.9 Headache, unspecified (principal); M54.2 Cervicalgia; R11.0 Nausea; M62.838 Other muscle spasm; Z03.818 Encounter for observation for suspected exposure to other biological agents ruled out; Z79.899 Other long term (current) drug therapy
CPT/HCPCS: 0241U; 70450; 70496; 70498; 80048; 80076; 83735; 84702; 85025; 96361; 96374; 96375; 99284; J1200; J1885; J2765; Q9967

== ENCOUNTER → 2024-06-12 10:36 | Outpatient (BNV) | payer MEDICAID, SELFPAY | PROVIDERS: PCP Family Medicine; Visit Provider Radiology Diagnostic Radiology | DX: R51.9 Headache, unspecified (principal); R68.89 Other general symptoms and signs | CPT/HCPCS: 70450; 70496; 70498 ==